=== PATIENT | male | born 1980 | race African-American/Black ===

== ENCOUNTER 2016-08-23 00:53 | Emergency (ER) | payer OTHER ==
[~2016-08-23] VITALS: Ht 182.9 cm; Wt 81.6 kg
[2016-08-23] MEDS ORDERED: NKM (01:06)
[2016-08-23 01:15] VITALS: BP 115/78
[2016-08-23 03:00] VITALS: BP 120/76
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
--- NOTE | 2016-08-23 09:49 | Diagnostic Imaging Report ---
Indication: PAIN Technique: XRAY HAND MIN 3V LEFT Comparison: None. Findings: The osseous structures are intact. There is no fracture or destruction. The visualized joints are normal. The soft tissues are unremarkable. Impression: Normal.
== END 2016-08-23 03:00 | disposition home or self-care (01) ==
LOC: EMR 01:12
DX: S63.615A Unspecified sprain of left ring finger, initial encounter (principal); X58.XXXA Exposure to other specified factors, initial encounter; Y92.9 Unspecified place or not applicable
CPT/HCPCS: 99283

== ENCOUNTER 2016-09-17 20:33 | Emergency (ER) | payer OTHER ==
[~2016-09-17] VITALS: Ht 182.9 cm; Wt 81.6 kg
[~2016-09-17 20:33] MED LIST: NKM
[2016-09-17 21:45] VITALS: BP 127/76
[2016-09-17] MEDS ORDERED: CYCLOBENZAPRINE10 MG ORAL (22:15)
[2016-09-17] MEDS ORDERED: IBUPROFEN600 MG ORAL (22:15)
[2016-09-17 22:28] VITALS: BP 127/76
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
--- NOTE | 2016-09-18 11:44 | Diagnostic Imaging Report ---
Indication: PAIN Technique: 3 views of the left shoulder Comparison: None Findings: No acute fractures or dislocations. Joint spaces are preserved. Impression: Negative
--- NOTE | 2016-09-18 11:58 | Diagnostic Imaging Report ---
Indications: Neck pain Technique: 2 or 3 views of the cervical spine Comparison: None Findings: Normal alignment. No acute fractures. No dislocations. Vertebral body heights and disc spaces are preserved. No prevertebral soft tissue swelling. There are probably bilateral cervical ribs. Surgical clips are seen in the neck Impression: No acute process
--- NOTE | 2016-09-18 15:16 | Diagnostic Imaging Report ---
Indication: PAIN Technique: 3 views of the lumbar spine Comparison: None Findings:Bony alignment is normal. Vertebral body heights are preserved. Disc spaces are preserved. Pedicles are intact. Sacral arches are preserved. Sacroiliac joint spaces are preserved. There is left hip hardware in place. Impression:No acute process
== END 2016-09-17 22:30 | disposition home or self-care (01) ==
LOC: EMR 21:13
DX: S16.1XXA Strain of muscle, fascia and tendon at neck level, initial encounter (principal); S39.012A Strain of muscle, fascia and tendon of lower back, initial encounter; S40.011A Contusion of right shoulder, initial encounter; V43.52XA Car driver injured in collision with other type car in traffic accident, initial encounter; Y92.410 Unspecified street and highway as the place of occurrence of the external cause
CPT/HCPCS: 72020; 72050; 99284

== ENCOUNTER 2019-05-02 11:14 | Emergency (ER) | payer OTHER ==
[~2019-05-02] VITALS: Ht 182.9 cm; Wt 81.6 kg
[~2019-05-02 11:14] MED LIST changes: +CYCLOBENZAPRINE10 MG ORAL; +IBUPROFEN600 MG ORAL
[2019-05-02 11:22] VITALS: BP 132/73
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
[2019-05-02] MEDS ORDERED: TYLENOL EXTRA500 MG ORAL (13:36)
[2019-05-02 13:43] VITALS: BP 126/86
== END 2019-05-02 13:43 | disposition home or self-care (01) ==
LOC: EMR 13:20
DX: S00.83XA Contusion of other part of head, initial encounter (principal); S00.33XA Contusion of nose, initial encounter; Y04.2XXA Assault by strike against or bumped into by another person, initial encounter; Y92.9 Unspecified place or not applicable; Y99.0 Civilian activity done for income or pay
CPT/HCPCS: 99282